=== PATIENT | female | born 1945 | race African-American/Black ===

== ENCOUNTER 2018-10-02 19:28 | Emergency (ER) | payer MEDICARE ==
[~2018-10-02] VITALS: Ht 157.5 cm; Wt 63.6 kg
[2018-10-02 19:41] VITALS: Ht 157.5 cm; Wt 63.6 kg
[2018-10-02] MEDS ORDERED: TREXALL5 MG PO (19:42)
[2018-10-02] MEDS ORDERED: FOLIC ACID1 MG PO (19:43)
[2018-10-02] MEDS ORDERED: ULTRAM50 MG PO (19:43)
[2018-10-02] MEDS ORDERED: LISINOPRIL5 MG PO (19:43)
[2018-10-02 21:10] LABS: BASOPHILS 0.1 % (0-2); EOSINOPHILS 0.4 % (0-7); HEMATOCRIT 31.5 % (36.0-48.0); HEMOGLOBIN 10.3 g/dL (12-16); IMMATURE GRANULOCYTES 0.3 % (0-5); LYMPHOCYTES 8.9 % (15-50); MCH 28.7 pg (26.0-34.0); MCHC 32.7 g/dL (31.0-37.0); MCV 87.7 fL (80.0-100.0); MEAN PLATELET VOLUME 10.8 fL (7.4-10.4); NEUTROPHILS 85.3 % (40-80); PLATELET COUNT 109 10x3/uL (130-400); RBC 3.59 10x6/uL (4.00-5.40); RDW 15.1 % (11.5-14.5); WBC 7.1 10x3/uL (4.8-10.8)
[2018-10-02 21:22] LABS: ALBUMIN 3.1 g/dL (3.4-5.0); ALKALINE PHOSPHATASE 82 U/L (46-116); ALT (SGPT) 33 U/L (10-68); BILIRUBIN - TOTAL 0.45 mg/dL (0.2-1.3); CALC OSMOLALITY 279 mosm/kg (275-300); CARBON DIOXIDE 26.4 mmol/L (21.0-32.0); CHLORIDE - SERUM 98 mmol/L (98-107); CREATININE - SERUM 1.6 mg/dL (0.6-1.3); GLUCOSE 110 mg/dL (74-106); POTASSIUM - SERUM 3.9 mmol/L (3.5-5.1); PROTEIN - SERUM 8.4 g/dL (6.4-8.2); SODIUM 136 mmol/L (136-145); UREA NITROGEN 33 mg/dL (7-18); eGFR NON AFRICAN AMERICAN 34 mL/min (90-120)
[2018-10-02 21:31] LABS: MAGNESIUM - SERUM 1.6 mg/dL (1.8-2.4); THYROID STIMULATING HORMONE 1.02 uIU/mL (0.36-3.74); TROPONIN-I < 0.017 ng/mL (0.000-0.060)
[2018-10-02 22:34] VITALS: BP 125/63
== END 2018-10-02 22:17 | disposition home or self-care (01) ==
LOC: D.ER 19:28
PROVIDERS: Emergency Medicine
DX: E86.0 Dehydration (principal); R55 Syncope and collapse